=== PATIENT | male | born 1960 | race Native Hawaiian/Other Pacific Islander ===

== ENCOUNTER 2016-06-01 07:37 | Outpatient (CLI) | payer OTHER | END 2016-06-01 18:57 | disposition home or self-care (01) | LOC: CT 07:37 | DX: I77.89 Other specified disorders of arteries and arterioles (principal) | CPT/HCPCS: 36415; 82565; 84520; Q9963 ==

== ENCOUNTER 2019-04-16 08:00 | Outpatient (CLI) | payer OTHER | END 2019-04-16 17:00 | disposition home or self-care (01) | LOC: CT 08:00 | DX: I77.89 Other specified disorders of arteries and arterioles (principal) | CPT/HCPCS: 36415; 82565; 84520; Q9963 ==

== ENCOUNTER 2020-10-29 09:09 | Outpatient (CLI) | payer OTHER | END 2020-10-29 21:01 | disposition home or self-care (01) | LOC: CT 09:09 | PROVIDERS: ATTEND Internal Medicine Cardiovascular Disease | DX: I77.89 Other specified disorders of arteries and arterioles (principal) | CPT/HCPCS: 36415; 82565; 84520; Q9963 ==